=== PATIENT | male | born 1945 | race Caucasian/White ===

== ENCOUNTER 2017-01-23 14:01 | Emergency (ER) | payer OTHER ==
--- NOTE | 2017-01-23 15:47 | UCPHY ---
H & P Time Seen by Provider: 01/23/17 15:35 Patient Type: Established HPI/ROS: CHIEF COMPLAINT: Back pain HISTORY OF PRESENT ILLNESS: The patient is a 72 year old male presenting with left posterior rib pain that occurs with deep inhalation. This discomfort started 4 days ago, though there was a fall some 11 days ago and no pain during that entire time. The mild, constant pain is localized to the left posterior ribs. His pain is sharp, mild when inhaling. Pain is not worsened with mobility or twisitng. He denies associated shortness of breath or dyspnea. No lower extremity pain or swelling, or calf pain. No hypercoaguable in self or family. No immobilization or surgeryor cough or hemoptysis. . The patient had a fall 11 days ago and injured his left elbow. The patient fell on his left side into a coffee table. He now has bruising and soreness to the left elbow, just distal to the olecranon process and distal to the ar of the bursa. ROM reserved. He [place] [facility] [place] PCP, but in view of the CP he checked in here to the . The patient did not have associated rib pain immediately after the fall, his that pain began 5 days after the fall. He denies extremity numbness or weakness. Patient is right hand dominant. 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 Did strike left parietal area when fell 11 days ago without neck pain, LOC, amnesia or fluid from nose or ears. No blood thinners. Risk Factors for DVT/PE: None REVIEW OF SYSTEMS: Constitutional: No fever, no chills. Eyes: No discharge ENT: No sore throat. Cardiovascular: No chest pain, no palpitations. Respiratory: Back pain with deep inhalation. No shortness of breath. Gastrointestinal: No nausea vomiting or diarrhea. No abdominal pain. Genitourinary: No hematuria or frequency. Musculoskeletal: Back pain, Left elbow pain. Skin: No rashes. Neurological: No headache. 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 Smoking Status: Never smoked Physical Exam: General Appearance: Alert, no distress. Afebrile. Normal phonation. No respiratory distress. Looks younger that age. Head: Left parietal abrasion, no soft tissue swelling. Eyes: Pupils equal and round no pallor or injection. No icterus ENT, Mouth: Mucous membranes moist. Pharynx without erythema or exudate. TM Clear. Neck: No adenopathy. Supple. No JVD. Trachea in midline. No ML temndermess or step off. C spine cleared with Nexus Criteria. Respiratory: Objective sense of pain with breathing. There are no retractions, lungs are clear to auscultation. Cardiovascular: Regular rate and rhythm without murmur. Abdomen: Soft and nontender, no masses, bowel sounds normal. Neurological: Ox3. No motor weakness. Sensation intact. Gait normal. Skin: Extensive heme staining of various, progressive colors extending distally from the elow to the left wrist on the volar aspect, iwthout STS. Musculoskeletal: No rib tenderness. Extremities: 2 cm nodule present overlying the volar aspect of left elbow, distal to the olecranon process itself, as well as the bursa. Slightly tender. superficial in the SC tissue wihtout adherence to the bone. Mobile.. Full range of motion. No bony tenderness. Good capillary refill. Neurovascularly intact. Psychiatric: Normal affect. Seems despondent when talking of work stress, though state work in progress.. Constitutional: Initial Vital Signs Temperature (C) 37.1 C 01/23/17 14:10 Heart Rate 101 H 01/23/17 14:10 Respiratory Rate 16 01/23/17 14:10 Blood Pressure 187/89 H 01/23/17 14:10 O2 Sat (%) 93 01/23/17 14:10 O2 Delivery Mode Room Air Allergies/Adverse Reactions: No Allergies [NKDA] Allergy (Verified 01/23/17 14:14) Home Medications: Medication Instructions Recorded Atorvastatin Calcium [Lipitor 10 10 mg PO DAILY 07/01/13 mg (RX)] Aspirin 03/20/16 Multivitamin (OTC) 03/20/16 Vitamin D3 03/20/16 Medical Decision Making - Diagnostics Imaging: Study: X-ray of the chest was obtained. My interpretation: Old right pleural effusion, or elevated rogelio diaphragm. Unchanged from 10/14.. Images were interpreted by the radiologist, Dr. Erazo who reports: Nothing acute. I viewed the images myself on the PACS system. I reviewed the elbow x-ray taken prior to arrival. Results: No fracture. I viewed the images myself on the PACS system. ED Course/Re-evaluation: The patient was sent here for an elbow x-ray. While at the urgent care the patient mentions 3 days of painful inhalation. The patient did have a fall 8 days ago causing bruising and soreness to his left elbow. He developed pain to left ribs with inhalation 5 days after the fall. I ordered a chest x-ray. Plan to check basic labs including BMP, CBC, and UA. D-dimer ordered to rule out blood clot. D-dimer is negative. UA neg for blood H&H stabel Chest x-ray shows nothing acute. Lab work is otherwise insignificant. I have discussed findings with the patient. I do not suspect DVT or PE is likely at this time. Due to age, unable to use PERC rule But, Well's low given neg dimer, no need for further w/u at this time. D/w pt. - Data Points Laboratory Results: Laboratory Results 01/23/17 17:29 01/23/17 17:29 Departure - Departure Disposition: Home, Routine, Self-Care Clinical Impression: Elbow contusion Qualifiers: Encounter type: initial encounter Laterality: left Qualified Code(s): S50.02XA - Contusion of left elbow, initial encounter Thoracic back pain Qualifiers: Chronicity: acute Back pain laterality: left Qualified Code(s): M54.6 - Pain in thoracic spine Condition: Good Instructions: Contusion in Adults (ED), Hematoma (ED) Additional Instructions: As best we can try to avoid putting weight on that left forearm where that swelling is, otherwise it will persist to be somewhat painful. It is important to return or go to a local ER if he develops shortness of breath or cough or coughing up blood or leg pain. In the meantime, it is important for him to follow up with his family doctor in the next week. Referrals: Evangelista Miranda DO [Primary Care Provider] - As per Instructions - PQRS PQRS Measurement: 134: Depression screening and followup, PRIME MD-PHQ2 (12 years and older) Over the last 2 weeks, how often have you been bothered by any of the following problems? 1. Feeling down, depressed, or hopeless? 2. Little interest or pleasure in doing things? [Patient answered yes to at least 1, referred to PCP for further evaluation. 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 Reviewed all patient medications, doses, route and frequency. 226: Do you smoke? No. 47: 65 and older: Advanced care planning. Patient designates surrogate decision maker as spouse. Patient has advanced directive. 51: 18 years old and older with diagnosis of COPD, spirometry performance. Patient has no history of COPD 52: 18 years old and older with COPD and symptoms of COPD or FEV1<60% predicted prescribed a B Agonist. Patient has no history of COPD Report Scribed for: Rolando Sorensen Report Scribed by: Genesis Baker Date of Report: 01/23/17 Time of Report: 15:47
[2017-01-23 17:39] LABS: % IMMATURE GRANULYOCYTES 0.3 % (0.0-1.1); ABSOLUTE IMMATURE GRANULOCYTES 0.02 10^3/uL (0.00-0.10); ADD DIFF? NO; ADD MORPH? NO; ADD SCAN? NO; ATYPICAL LYMPHOCYTE FLAG 10 (0-99); FRAGMENT RBC FLAG 0 (0-99); HEMOGLOBIN 16.3 g/dL (13.7-17.5); LEFT SHIFT FLG 0 (0-99); LIPEMIA HEMOLYSIS FLAG 90 (0-99); MEAN CELL HEMOGLOBIN 31.8 pg (27.9-34.1); MEAN CELL HEMOGLOBIN CONCENTR. 34.7 g/dL (32.4-36.7); MEAN CELL VOLUME 91.8 fL (81.5-99.8); MEAN PLATELET VOLUME 10.2 fL (8.7-11.7); PLATELET CLUMPS FLAG 20 (0-99); PLATELET COUNT 231 10^3/uL (150-400); RED BLOOD CELL COUNT 5.12 10^6/uL (4.40-6.38); RED CELL DISTRIBUTION WIDTH 11.9 % (11.5-15.2)
[2017-01-23 17:51] LABS: ANION GAP 17 mEq/L (8-16); CALCIUM 10.6 mg/dL (8.5-10.4); CARBON DIOXIDE 23 mEq/l (22-31); CHLORIDE 100 mEq/L (97-110); CREATININE 1.1 mg/dL (0.7-1.3); GLOMERULAR FILTRATION RATE > 60; GLUCOSE 98 mg/dL (70-100); POTASSIUM 4.4 mEq/L (3.5-5.2); SODIUM 140 mEq/L (134-144)
[2017-01-23 18:46] VITALS: BP 176/96; PULSE 60; RESP 14; TEMP 97.7; O2SAT 96
== END 2017-01-23 18:45 | disposition home or self-care (01) ==
LOC: CED 14:01
DX: M54.6 Pain in thoracic spine (principal); S50.02XA Contusion of left elbow, initial encounter; W18.00XA Striking against unspecified object with subsequent fall, initial encounter
CPT/HCPCS: 71020-PO; 80048-PO; 85025-PO; 85378-PO; G0463-PO

== ENCOUNTER → 2017-01-23 | Outpatient (CLI) | payer OTHER | LOC: CIMAGING 14:04 | PROVIDERS: ATTEND Clinical Nurse Specialist | DX: M25.522 Pain in left elbow (principal) | CPT/HCPCS: 73080-PO; 73090-PO ==

== ENCOUNTER 2017-11-04 05:50 | Day surgery (SDC) | payer OTHER ==
[~2017-11-04 05:50] MED LIST: ceFAZolin 2 GM/SWFI 2 GM/20 ML SYR IVP ONE
[2017-11-04] MEDS ORDERED: ceFAZolin 2 GM/SWFI 2 GM/20 ML SYR IVP ONE (06:00)
[2017-11-04] MEDS ORDERED: LR 1,000 ML IV ONE (06:02)
[2017-11-04] MEDS ORDERED: LIDOCAINE 1% 2 ML INJ ID PRN (06:02)
[2017-11-04 06:12] VITALS: PULSE 90
[2017-11-04] MEDS ORDERED: BUPIVACAINE 0.5% 30 ML SDV ONE (06:49)
--- NOTE | 2017-11-04 06:58 | PDANEPAE ---
ANE Past Medical History - Cardiovascular History Hx Hypertension: Yes Hx Arrhythmias: No Hx Chest Pain: No Hx Coronary Artery / Peripheral Vascular Disease: No Hx CHF / Valvular Disease: No Hx Palpitations: No Cardiovascular History Comment: well controlled. On statin RX. 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 rotator cuff repair. inguinal hernia repair. TURP ANE Review of Systems Review of Systems: - Exercise capacity METS (RN): 4 METS ANE Patient History - Allergies Allergies/Adverse Reactions: No Allergies [NKDA] Allergy (Verified 11/03/17 13:43) - Home Medications Home Medications: Atorvastatin Calcium [Lipitor 10 mg (RX)] 10 mg PO DAILY 07/01/13 [Last Taken ] Aspirin 03/20/16 [Last Taken 11/01/17] Multivitamin (OTC) 03/20/16 [Last Taken 11/02/17] Amlodipine-Benazepril 10-20 mg 11/03/17 [Last Taken 11/02/17] VITAMIN E 11/03/17 [Last Taken 11/02/17] Vitamin D3 11/03/17 [Last Taken 11/02/17] traMADol 11/04/17 [Last Taken 11/02/17] - NPO status NPO Since - Liquids (Date): 11/03/17 NPO Since - Liquids (Time): 20:30 NPO Since - Solids (Date): 11/03/17 NPO Since - Solids (Time): 20:30 - Smoking Hx Smoking Status: Never smoked ANE Labs/Vital Signs - Vital Signs Blood Pressure: 177/97 Heart Rate: 90 Respiratory Rate: 18 O2 Sat (%): 94 Height: 182.88 cm Weight: 79.379 kg ANE Physical Exam - Airway Mallampati Score: Class 2 - ASA Status ASA Status: II ANE Anesthesia Plan Anesthesia Plan: GA w LMA
[2017-11-04] MEDS ORDERED: MIDAZOLAM 2 MG/2 ML VIAL ONE (07:03)
[2017-11-04] MEDS ORDERED: fentaNYL 100 MCG/2 ML INJ ONE ×5 (07:03→09:40)
[2017-11-04] MEDS ORDERED: PROPOFOL 200 MG/20 ML VIAL ONE (07:04)
[2017-11-04] MEDS ORDERED: METOCLOPRAMIDE 10 MG/2 ML VIAL ONE (07:08)
[2017-11-04] MEDS ORDERED: LIDOCAINE 2% JELLY 5 ML TUBE ONE (07:08)
[2017-11-04] MEDS ORDERED: ONDANSETRON 4 MG/2 ML VIAL ONE (07:08)
[2017-11-04] MEDS ORDERED: PROMETHAZINE HCL 25 MG/ML INJ IVP PRN (09:24)
[2017-11-04] MEDS ORDERED: NALOXONE HCL 0.4 MG/ML INJ IVP PRN (09:24)
[2017-11-04] MEDS ORDERED: LR 500 ML IV PRN (09:24)
[2017-11-04] MEDS ORDERED: LABETALOL HCL 5 MG/ML 20 ML MDV IVP PRN (09:24)
--- NOTE | 2017-11-04 09:25 | POSTANESTH ---
Post Anesthetic Evaluation Cardiovascular Status: Similar to Pre-Op Cond Respiratory Status: Normal, Stable Level of Consciousness/Mental Status: Can Participate in Eval Pain Control: Adequate, Prn Tx Ordered Nausea/Vomiting Control: Adequate, Prn Tx Ordered Complications Possibly Related to Anesthesia: None Noted
--- NOTE | 2017-11-04 09:27 | PDGENHP ---
History and Physical - Chief Complaint Right wrist fracture wit poor alignment - History of Present Illness 72 year old male with right distal radial and ulnar styloid fracture having fallen from the porch. Fracture alignment showing shortening and angulation. Surgical correction needed History Information - Allergies/Home Medication List Allergies/Adverse Reactions: No Allergies [NKDA] Allergy (Verified 11/03/17 13:43) Home Medications: Atorvastatin Calcium [Lipitor 10 mg (RX)] 10 mg PO DAILY 07/01/13 [Last Taken ] Aspirin 03/20/16 [Last Taken 11/01/17] Multivitamin (OTC) 03/20/16 [Last Taken 11/02/17] Amlodipine-Benazepril 10-20 mg 11/03/17 [Last Taken 11/02/17] VITAMIN E 11/03/17 [Last Taken 11/02/17] Vitamin D3 11/03/17 [Last Taken 11/02/17] traMADol 11/04/17 [Last Taken 11/02/17] - Past Medical History no pertinent PMH, hypertension (controled with Lisinopril) - Social History Smoking Status: Never smoked Review of Systems Review of Systems: Muscolosketal: Reports: joint pain (Both rotator cuffs repaired 4yrs and 7 yrs ago. Present right wrist injury) Physical Exam Physical Exam: Temp Pulse Resp BP Pulse Ox 36.9 C 90 17 160/94 H 94 11/04/17 09:20 11/04/17 06:58 11/04/17 09:20 11/04/17 09:20 11/04/17 09:20 Cardiovascular: regular rate and rhythym, no murmur, rub, or gallop, No edema Respiratory: no respiratory distress, no rales or rhonchi, clear to auscultation Musculoskeletal: joint effusion, joint tenderness Assessment & Plan Assessment: Xrays show displaced angulated distal radial fracture with intra-articular involvement. Ulnar styloid fractured and displaced. Surgical correction needed Plan: Surgical correction with plate and screw fixation.
[2017-11-04] MEDS: fentaNYL 100 MCG/2 ML INJ IVP PRN ×3 (09:33→09:44)
--- NOTE | 2017-11-04 09:41 | POSTOPPROG ---
Post Op Note Date of Operation: 11/04/17 Surgeon: Yoseph Jason Anesthesiologist: Seven Anesthesia: GET(General Endotracheal) Pre-op Diagnosis: Fracture right distal radius and ulnar styloid Post-op Diagnosis: same Indication: fracture in poor alignment Procedure: ORIF right distal radius and ulnar styloid fracture Inf/Abcess present in the surg proc area at time of surgery?: No Depth: Deep Incisional (Fascial) EBL: Minimal Total fluids administered: 700 Specimen(s): no
[2017-11-04] MEDS ORDERED: KETOROLAC 30 MG/1 ML SDV IVP ONE (10:00)
[2017-11-04] MEDS ORDERED: HYDROmorphONE/DILAUDID 1 MG/ML INJ IVP ONE (10:00)
[2017-11-04] MEDS ORDERED: HYDROmorphONE/DILAUDID 1 MG/ML INJ ONE (10:01)
[2017-11-04] MEDS ORDERED: KETOROLAC 30 MG/1 ML SDV ONE (10:01)
--- NOTE | 2017-11-04 10:33 | GOP ---
[f rep st] OPERATIVE REPORT DATE OF OPERATION: 11/04/2017 SURGEON: Yoseph Jason MD PREOPERATIVE DIAGNOSIS: Right distal radius and ulnar styloid fracture. POSTOPERATIVE DIAGNOSIS: Right distal radius and ulnar styloid fracture. PROCEDURE PERFORMED: Open reduction, internal fixation of right distal radial fracture and fluorosco pic reduction and percutaneous K-wire fixation of ulnar styloid fracture. FINDINGS: INDICATIONS: Displacement and angulation of both fracture sites with shortening of the distal radius . It was found also that there was intra-articular involvement of the distal radius with some separa tion of the articular fragments. It was felt that open reduction, internal fixation of the distal ra dial fracture was a good option for him. DESCRIPTION OF PROCEDURE: Under general anesthesia, the patient's right arm was prepped and draped i n usual fashion. Arm tourniquet applied at 250 mmHg. A wrist traction tower was applied at 10 pound s of longitudinal traction, and the fracture alignment was dramatically improved with manipulation of the distal radius. The ulnar styloid fragment was manipulated back into corrected position and K-wi re fixated with two 0.045 K-wires. These K-wires locked the fragment in good alignment. The distal radial fracture was then approached through an L-shaped incision on the palmar aspect of t he distal forearm transversely at the distal flexion crease and then obliquely proximal along the FCR tendon. Skin flap and subcutaneous tissue were reflected. The interval between the flexor carpi ra dialis and palmaris longus was developed. The palmar cutaneous nerve was identified and protected. The FPL tendon and FCR tendon were reflected radially. Finger flexors, median nerve, and palmaris lo ngus were reflected ulnarly. The pronator quadratus was elevated from the distal radius, and the fra cture site was further corrected, and then a palmar-based plate and screws were applied, locking the fracture in corrected alignment. The length of the screws was tested. Fracture fixation was felt to be solid. The wound was irrigated profusely with body temperature saline. Video stills were taken in the opera ting room of the final position. The pronator quadratus was sewn back in place using [id number] sutures of 4-0 PDS. The fascia was closed at the distal forearm with 4-0 PDS. The skin was closed with horizontal mattress sutures of 5-0 Prolene. It should be noted that several irrigations were pe rformed during the course of the operative procedure. 0.5% plain Marcaine was instilled at the fract ure site, at the ulnar styloid site, as well as blocking radial, ulnar, and median nerves at the mids haft forearm. A total of 14 cc of 0.5 plain Marcaine was used for the postop block. The wound was d ressed with a bulky soft pressure dressing, followed by palmar-based fiberglass splint held in place with an Rodrigue bandage. Tourniquet deflation resulted in immediate pinking of the digits. He was brought to the recovery area where detailed postoperative instructions were given prior to dis charge. A prescription for Percocet and Keflex was provided. He had been given 2 g of Ancef prior t o commencement of surgery. Followup arrangements in the office for about a week postop for dressing and suture removal and gentle remobilization exercises. /[id number]/MODL
[2017-11-04 10:40] VITALS: RESP 14
[2017-11-04] MEDS ORDERED: OXYCODONE/APAP 5/325 TAB PO ONE (11:00)
[2017-11-04 11:36] VITALS: TEMP 98.2
[2017-11-04] MEDS ORDERED: OXYCODONE/APAP 5/325 TAB ONE (11:43)
[2017-11-04 12:22] VITALS: BP 146/91; O2SAT 93
== END 2017-11-04 12:24 | disposition home or self-care (01) ==
LOC: FSGY 05:50
PROVIDERS: ATTEND Specialist
PROC: 0PSH04Z Reposition Right Radius with Internal Fixation Device, Open Approach (ICD-10-PCS; principal; 2017-11-04 07:15)
PROC: 0PSK34Z Reposition Right Ulna with Internal Fixation Device, Percutaneous Approach (ICD-10-PCS; principal; 2017-11-04 07:15)
DX: S52.531A Colles' fracture of right radius, initial encounter for closed fracture (principal); S52.611A Displaced fracture of right ulna styloid process, initial encounter for closed fracture; S00.81XA Abrasion of other part of head, initial encounter; W01.0XXA Fall on same level from slipping, tripping and stumbling without subsequent striking against object, initial encounter; Y93.K1 Activity, walking an animal; Y92.007 Garden or yard of unspecified non-institutional (private) residence as the place of occurrence of the external cause; I10 Essential (primary) hypertension; I25.10 Atherosclerotic heart disease of native coronary artery without angina pectoris; I25.2 Old myocardial infarction; E78.5 Hyperlipidemia, unspecified; Z85.828 Personal history of other malignant neoplasm of skin
CPT/HCPCS: C1713; J0690; J1170; J1885; J2250; J2405; J2704; J2765; J3010

== ENCOUNTER 2017-12-24 05:59 | Day surgery (SDC) | payer OTHER ==
[2017-12-24] MEDS ORDERED: LR 1,000 ML IV ONE (06:29)
[2017-12-24] MEDS ORDERED: LIDOCAINE 1% 2 ML INJ ID PRN (06:29)
[2017-12-24] MEDS ORDERED: MIDAZOLAM 2 MG/2 ML VIAL IVP ONE (06:58)
--- NOTE | 2017-12-24 06:58 | PDANEPAE ---
ANE History of Present Illness right wrist hardware removal ANE Past Medical History - Cardiovascular History Hx Hypertension: Yes Hx Arrhythmias: No Hx Chest Pain: No Hx Coronary Artery / Peripheral Vascular Disease: No Hx CHF / Valvular Disease: No Hx Palpitations: No Cardiovascular History Comment: well controlled - Pulmonary History Hx COPD: No Hx Asthma/Reactive Airway Disease: No Hx Recent Upper Respiratory Infection: No Hx Oxygen in Use at Home: No Hx Sleep Apnea: No Sleep Apnea Screening Result - Last Documented: Negative - Neurologic History Hx Cerebrovascular Accident: No Hx Seizures: No Hx Dementia: No - Endocrine History Hx Diabetes: No - Renal History Hx Renal Disorders: No - Liver History Hx Hepatic Disorders: No - Neurological & Psychiatric Hx Hx Neurological and Psychiatric Disorders: No - Cancer History Hx Cancer: Yes Cancer History Comment: age 16 skin CA lip excised - Congenital Disorder History Hx Congenital Disorders: No - GI History Hx Gastrointestinal Disorders: No - Other Health History Other Health History: wears glasses/ contacts - Chronic Pain History Chronic Pain: No - Surgical History Prior Surgeries: 11/04/17 ORIF right ulna with gabriella. appy. rotator cuff repair. inguinal hernia repair. TURP ANE Review of Systems Review of Systems: - Exercise capacity METS (RN): 4 METS ANE Patient History - Allergies Allergies/Adverse Reactions: No Allergies [NKDA] Allergy (Verified 12/23/17 11:41) - Home Medications Home medications: home medication list seen and reviewed Home Medications: Atorvastatin Calcium [Lipitor 10 mg (RX)] 07/01/13 [Last Taken 11/02/17] Aspirin 03/20/16 [Last Taken 12/23/17] Multivitamin (OTC) 03/20/16 [Last Taken 11/02/17] Amlodipine-Benazepril 10-20 mg 11/03/17 [Last Taken 12/23/17] VITAMIN E 11/03/17 [Last Taken 11/02/17] Vitamin D3 11/03/17 [Last Taken 11/02/17] traMADol 11/04/17 [Last Taken 11/02/17] - NPO status NPO Since - Liquids (Date): 12/23/17 NPO Since - Liquids (Time): 17:00 NPO Since - Solids (Date): 12/23/17 NPO Since - Solids (Time): 17:00 - Smoking Hx Smoking Status: Never smoked - Family Anes Hx Family Hx Anesthesia Complications: none ANE Labs/Vital Signs - Vital Signs Blood Pressure: 163/91 Heart Rate: 92 Respiratory Rate: 16 O2 Sat (%): 88 Height: 182.88 cm Weight: 79.379 kg ANE Physical Exam - Airway Neck exam: FROM Mallampati Score: Class 1 Mouth exam: normal dental/mouth exam - Pulmonary Pulmonary: no respiratory distress - Cardiovascular Cardiovascular: regular rate and rhythym - ASA Status ASA Status: II ANE Anesthesia Plan Anesthesia Plan: GA with mask
[2017-12-24] MEDS ORDERED: BUPIVACAINE 0.5% 10 ML SDV ONE (07:00)
[2017-12-24] MEDS ORDERED: fentaNYL 100 MCG/2 ML INJ ONE (07:02)
[2017-12-24] MEDS ORDERED: PROPOFOL 200 MG/20 ML VIAL ONE ×2 (07:02→07:36)
[2017-12-24] MEDS ORDERED: LIDOCAINE 2% 5 ML SDV ONE (07:08)
--- NOTE | 2017-12-24 07:19 | PDHPUP ---
History & Physical Update H&P update statement: This history and physical update is based on an assessment of the patient which was completed after admission or registration (within 24 hours), but prior to the surgery/procedure.
--- NOTE | 2017-12-24 07:22 | POSTOPPROG ---
Post Op Note Date of Operation: 12/24/17 Surgeon: Yoseph Jason Cloth Sponger: none Anesthesiologist: Mauro Anesthesia: IV Sedation Pre-op Diagnosis: Retained pins x 2 Post-op Diagnosis: same Indication: healed fracture Procedure: K wire removal x 2 Findings: healed fracture Inf/Abcess present in the surg proc area at time of surgery?: No Depth: Deep Incisional (Fascial) EBL: Minimal Total fluids administered: 600cc Complications: none
[2017-12-24] MEDS ORDERED: ALBUTEROL 3 ML DEYVIAL IH PRN (07:57)
[2017-12-24] MEDS ORDERED: NALOXONE HCL 0.4 MG/ML INJ IVP PRN (07:57)
[2017-12-24] MEDS ORDERED: fentaNYL 100 MCG/2 ML INJ IVP PRN (07:57)
[2017-12-24] MEDS ORDERED: LR 500 ML IV PRN (07:57)
[2017-12-24] MEDS ORDERED: OXYCODONE/APAP 5/325 TAB PO PRN (07:57)
[2017-12-24] MEDS ORDERED: ACETAMINOPHEN 500 MG TAB PO PRN (07:57)
[2017-12-24] MEDS ORDERED: METOCLOPRAMIDE 10 MG/2 ML VIAL IVP PRN (07:57)
[2017-12-24] MEDS ORDERED: HYDROCODONE/APAP 5/325 TAB PO PRN (07:57)
[2017-12-24] MEDS ORDERED: ONDANSETRON 4 MG/2 ML VIAL IVP PRN (07:57)
--- NOTE | 2017-12-24 08:09 | POSTANESTH ---
Post Anesthetic Evaluation Cardiovascular Status: Normal, Stable Respiratory Status: Normal, Stable Level of Consciousness/Mental Status: Can Participate in Eval Pain Control: Adequate, Prn Tx Ordered Nausea/Vomiting Control: Adequate, Prn Tx Ordered Complications Possibly Related to Anesthesia: None Noted
[2017-12-24 08:28] VITALS: TEMP 97
--- NOTE | 2017-12-24 08:28 | GOP ---
[f rep st] OPERATIVE REPORT DATE OF OPERATION: 12/24/2017 SURGEON: Yoseph Jason MD PREOPERATIVE DIAGNOSIS: Retained pins x2, distal ulna. POSTOPERATIVE DIAGNOSIS: Retained pins x2, distal ulna. PROCEDURE PERFORMED: Excision of pins x2 under fluoroscopic control. FINDINGS: INDICATIONS: The ulnar styloid appeared to have healed solidly, but the pins, which were fixating th e styloid had migrated enough so that they were no longer palpable. It was felt that excision of the pins under fluoroscopic control was needed. DESCRIPTION OF PROCEDURE: Under local infiltration with 0.5% plain Marcaine and with monitored anest hesia care and sedation by anesthesiology, the patient's right arm was prepped and draped in the usua l fashion. The location of the pins was identified under fluoroscopic control. Then the arm tourniq uet was applied at 250 mmHg. Incisions were made over each pin location and the pins were eventually identified and excised. Both pins were deep in the tissues and were not palpable. Once the pins we re removed, fluoroscopic views revealed nice healing of the ulnar styloid and good position. The wou nds were infiltrated again with 0.5% plain Marcaine. Skin closed with horizontal mattress sutures of 5-0 Prolene. A bulky soft dressing was put in place with Coban tape holding it and applying some ge ntle compression. Tourniquet deflation resulted in immediate pinking of the digits. He was brought to the recovery area where detailed postoperative instructions were given prior to discharge. No ant ibiotics were felt to be necessary, but he was given a prescription for tramadol. Followup arrangeme nts in the office for about a week postop for dressing and suture removal and continued remobilizatio n exercises. /[id number]/MODL
[2017-12-24 08:54] VITALS: BP 162/94; PULSE 88; RESP 14; O2SAT 96
== END 2017-12-24 09:32 | disposition home or self-care (01) ==
LOC: FSGY 05:59
PROVIDERS: ATTEND Specialist
PROC: 0PPK04Z Removal of Internal Fixation Device from Right Ulna, Open Approach (ICD-10-PCS; principal; 2017-12-24 07:15)
DX: Z47.2 Encounter for removal of internal fixation device (principal); S52.531D Colles' fracture of right radius, subsequent encounter for closed fracture with routine healing
CPT/HCPCS: J2250; J2704; J3010